=== PATIENT | female | born 1935 | race Caucasian/White ===

== ENCOUNTER → 2017-11-04 | Outpatient (CLI) | payer MEDICARE, BC ==
--- NOTE | 2017-11-04 14:22 | REPMRS ---
Patient History The patient states she had a clinical breast exam in 10/31 Family history of prostate cancer in son. Benign lumpectomy of the right breast. Digital Woman Screen Mammo: November 04, 2017 - Exam #: [id number] Bilateral CC and MLO view(s) were taken. Technologist: Brit Valentine, Technologist Prior study comparison: August 03, 2016, digital woman screen mammo performed at [facility]. June 25, 2015, digital woman screen mammo performed at [facility]. FINDINGS: The breast tissue is heterogeneously dense. This may lower the sensitivity of mammography. There has been no change in the appearance of the mammogram from the prior studies. There is a moderate amount of residual fibroglandular tissue which is fairly symmetric. There is no interval development of dominant mass, areas of architectural distortion, or clustered microcalcification typical of malignancy. ASSESSMENT: BI-RADS/ACR category 1 mammogram. Negative. Recommendation Routine screening mammogram in 1 year (for women over age 40). This mammogram was interpreted with the aid of an FDA-approved computer-aided dectection system. Electronically Signed By: Wilson Hodge MD 11/04/17 8923
== END ==
LOC: M WHC 13:12
PROVIDERS: ATTEND Nurse Practitioner Family
DX: Z12.31 Encounter for screening mammogram for malignant neoplasm of breast (principal); R92.8 Other abnormal and inconclusive findings on diagnostic imaging of breast